=== PATIENT | male | born 1990 | race American Indian/Alaskan Native ===

== ENCOUNTER 2017-03-04 03:25 | Emergency (ER) | payer SELFPAY ==
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
[2017-03-04 07:44] VITALS: BP 112/74
== END 2017-03-04 07:30 | disposition home or self-care (01) ==
LOC: ED 03:25
DX: M54.41 Lumbago with sciatica, right side (principal); F17.200 Nicotine dependence, unspecified, uncomplicated
CPT/HCPCS: 99283